=== PATIENT | male | born 2000 | race Caucasian/White ===

== ENCOUNTER → 2023-10-13 11:55 | Outpatient (CLI) | payer OTHER, SELFPAY ==
--- NOTE | ~2023-10-13 | XR_ITS ---
XR abdomen/kub 1V 10/13/2023 12:08 INDICATION: Hematuria. TECHNIQUE: KUB COMPARISON: None FINDINGS: Bowel gas pattern is normal. There is no evidence of free air, mass, organomegaly, ascites or obstruction. There are bilateral renal stones. The bones appear intact. IMPRESSION: 1: Bilateral nephrolithiasis. Reviewed, dictated and finalized at location B. [facility] INTER[facility]
== END ==
PROVIDERS: PCP Nurse Practitioner Family; Visit Provider Nurse Practitioner Family
DX: R31.9 Hematuria, unspecified (principal); N20.0 Calculus of kidney
CPT/HCPCS: 74018

== ENCOUNTER 2023-10-18 01:17 | Emergency (ER) | payer OTHER, SELFPAY ==
--- NOTE | ~2023-10-18 | CT_ITS ---
Non-contrast CT scan of the Abdomen and Pelvis Clinical indication: Left flank pain Technique: 2.5 mm axial scans were obtained through the abdomen and pelvis without intravenous or or al contrast. Dose reduction technique was used on this scan by utilizing automated exposure control a nd iterative reconstruction technique. The dose-length product (DLP) was 297.02 mGy-cm. Findings: Images through the lung bases reveal no abnormalities. Multiple small bilateral nonobstructing renal stones measuring up to approximately 4 mm in size. Ques tionable minimal fullness of left ureter, which could indicate recently passed stone. No woody hydron ephrosis on either side. No ureteral stones seen currently. The liver, spleen, pancreas, gallbladder, and adrenals appear normal. There is no aortic aneurysm. There is no evidence of bowel obstruction. Images through the pelvis were performed. There is no evidence of ascites or lymphadenopathy. There i s a 4 mm stone layering posteriorly in the urinary bladder. No pelvic mass evident. No ascites. L5 pa rs interarticularis defects are present, without subluxation. Impression: 4 mm urinary bladder stone, likely recently passed, with minimal fullness of the left ureter. Numerous additional bilateral nonobstructing renal stones, measuring up to approximately 4 mm. Bilateral L5 pars interarticularis defects. Reviewed, dictated and finalized at location M. [facility] Impression: 4 mm urinary bladder stone, likely recently passed, with minimal fullness of th e left ureter. Numerous additional bilateral nonobstructing renal stones, measuring up to appr oximately 4 mm. Bilateral L5 pars interarticularis defects.
[2023-10-18 01:21] VITALS: BP 134/68; PULSE 55; RESP 16; TEMP 37; O2SAT 100
[2023-10-18 02:10] LABS: Basophils Absolute Auto 0.1 K/mm3 (0.0-0.1); Basophils Percent Auto 0.5 % (0.2-1.2); Eosinophils Absolute Auto 0.1 K/mm3 (0-0.3); Eosinophils Percent Auto 0.7 % (0-4.4); Hematocrit 41.8 % (42.0-52.0); Hemoglobin 13.8 g/dL (14.0-18.0); Immature Granulocyte Absolute 0.13 K/mm3 (0.00-0.031); Immature Granulocyte Percent A 0.7 % (0-0.5); Lymphocytes Absolute Auto 1.84 K/mm3 (0.9-3.2); Lymphocytes Percent Auto 9.5 % (18.3-44.2); Mean Platelet Volume 11.3 fl (7.4-10.4); Monocytes Absolute Auto 1.3 K/mm3 (0.1-0.6); Monocytes Percent Auto 6.8 % (2.6-8.5); Neutrophils Absolute Auto 15.8 K/mm3 (1.3-6.7); Neutrophils Percent Auto 81.8 % (45.5-73.1); Platelet Count Result 191 k/mm3 (150-375); Red Blood Count 4.31 M/mm3 (4.6-6.20); Red Cell Distribution Width 12.3 % (11.5-14.5); White Blood Count 19.4 K/mm3 (4.5-10.0)
[2023-10-18 02:13] LABS: Appearance Urine Clear (Clear); Bacteria Urine None Seen /hpf; Bilirubin Urine Negative (Negative); Blood Urine 3+ (Negative); Color Urine Yellow (Yellow); Glucose Urine UA Negative (Negative); Ketones Urine Trace mg/dL (Negative); Leukocyte Esterase Ur Negative LEU/UL (Negative); Nitrate Urine Negative (Negative); Non Pathogenic Casts 0-2; Protein Urine Trace mg/dL (Negative); RBC Urine >100 /hpf (0-2); Specific Grav Ur 1.021 (1.001-1.035); Squamous Epithelial Cell Urine None seen /hpf (Few); WBC Urine 0-5 /hpf; pH Urine 5.5 (5.0-9.0)
[2023-10-18 02:15] LABS: Add Urine Microscopic? YES
--- NOTE | 2023-10-18 02:20 | ED.GENADULT ---
HPI - General Adult General Chief complaint: Nausea/Vomiting/Diarrhea <SAAD Theodore Last Filed: 10/18/23 03:48> Stated complaint: kidney stones, nausea <SAAD Theodore Last Filed: 10/18/23 03:48> Time Seen by Provider: 10/18/23 02:19 <SAAD Theodore Last Filed: 10/18/23 03:48> Source: patient <SAAD Theodore Last Filed: 10/18/23 03:48> Mode of arrival: ambulatory <SAAD Theodore Last Filed: 10/18/23 03:48> Limitations: no limitations <SAAD Theodore Last Filed: 10/18/23 03:48> History of Present Illness HPI narrative: Patient is a 23 y/o male who presents to the ED with c/o L flank pain. Patient reports pain began last night and was fairly severe. L mid back and radiating around to his abdomen. He did report 1 episode of nausea and vomiting last night. He took ibuprofen around 11:30 p.m. without significant improvement. Patient has history of kidney stones and states pain feels similar. Last episode was around 1 year ago. He does not currently follow with a urologist. He does report some dysuria, intermittent hematuria for the last 1 week. Denies fevers. Denies diarrhea or constipation. <SAAD Theodore Last Filed: 10/18/23 03:48> Related Data Allergies/adverse reactions: Allergies Allergy/AdvReac Type Severity Reaction Status Date / Time No Known Allergies Allergy Verified 10/18/23 02:06 <SAAD Theodore Last Filed: 10/18/23 03:48> Review of Systems Review of Systems: CONSTITUTIONAL: Denies fever, chills, or sweats. GASTROINTESTINAL: See HPI GENITOURINARY: See HPI. MUSCULOSKELETAL: See HPI. <SAAD Theodore Last Filed: 10/18/23 03:48> All systems reviewed & are unremarkable except as noted in HPI and below <Lory Murguia PA-C - Last Filed: 10/18/23 03:48> [facility] Past Medical History Medical History: Medical History Hand abrasion Broken left Hematuria Kidney stones <Lory Murguia PA-C - Last Filed: 10/18/23 03:48> Family History Family History: Family History Grandparent Alcoholism Diabetes mellitus Hypertension Heart disease Cerebrovascular accident Breast cancer Carcinoma of colon <Lory Murguia PA-C - Last Filed: 10/18/23 03:48> Social History Social History: Social History Smoking status: Former smoker Tobacco type: e-cigarettes/vaping Smoking end date: 11/06/21 Alcohol intake: current Substance use: current Substance use type: marijuana <Lory Murguia PA-C - Last Filed: 10/18/23 03:48> Exam Narrative: GENERAL: Well appearing, thin, non-toxic, in no acute distress. HEAD: Normocephalic, atraumatic. RESPIRATORY: Airway patent, respirations nonlabored. Clear to auscultation bilaterally, no rales, rhonchi, wheezing. CARDIOVASCULAR: Regular rate and rhythm without murmurs, rubs, or gallops. ABDOMINAL: Soft, no significant tenderness throughout abdomen, nondistended. Normoactive BS. +CVA tenderness to percussion on L. MUSCULOSKELETAL: Moves all extremities. No gross deformities. SKIN: Warm, dry, normal color. NEURO: A&O X3. Speech clear. Cranial nerves II-XII grossly intact. Steady gait. No ataxic movements. PSYCHIATRIC: Appropriate mood and affect. Normal interaction. <Lory Murguia PA-C - Last Filed: 10/18/23 03:48> Course Vital Signs Vital signs: Vital Signs Temperature 37.0 C 10/18/23 01:21 Pulse Rate 55 L 10/18/23 01:21 Respiratory Rate 16 10/18/23 01:21 Blood Pressure 134/68 10/18/23 01:21 Pulse Oximetry 100 10/18/23 01:21 Temperature 37.0 C 10/18/23 01:21 Pulse Rate 55 L 10/18/23 03:56 Respiratory Rate 16
[2023-10-18 02:23] LABS: Alanine Aminotransferase 14 U/L (6-50); Albumin Level 4.8 g/dL (3.5-5.1); Alkaline Phosphatase 79 U/L (38-126); Anion Gap 6 mmol/L (8-16); Aspartate Amino Transferase 25 U/L (17-59); Bilirubin,Total 0.9 mg/dL (0.2-1.3); Blood Urea Nitrogen 23 mg/dL (9-20); Calcium 9.9 mg/dL (8.4-10.2); Carbon Dioxide 30 mmol/L (22-30); Chloride 104 mmol/L (98-107); Estimated CRCL calculation 78 ml/min; Estimated Glomerular Filt Rate > 60; Glucose 120 mg/dL (65-110); Potassium 4.2 mmol/L (3.4-5.0); Sodium 140 mmol/L (137-145)
[2023-10-18] MEDS: SODIUM CHLORIDE 0.9% IV 1,000 ML 999 ML IV CONT (02:41)
[2023-10-18 03:56] VITALS: PULSE 55; O2SAT 98
[2023-10-18 04:43] VITALS: BP 131/78
== END 2023-10-18 04:44 | disposition home or self-care (01) ==
PROVIDERS: Emergency Medicine; Emergency Provider Physician Assistant; PCP Nurse Practitioner Family
DX: R31.9 Hematuria, unspecified (principal); D72.829 Elevated white blood cell count, unspecified; Z87.442 Personal history of urinary calculi; Z87.891 Personal history of nicotine dependence; N20.0 Calculus of kidney
CPT/HCPCS: 36415; 74176; 80053; 81001; 85025; 96360; 99284; J7030